=== PATIENT | male | born 1990 | race African-American/Black ===

== ENCOUNTER 2023-04-28 15:12 | Emergency (ER) | payer SELFPAY ==
[~2023-04-28] VITALS: Ht 157.5 cm; Wt 61.2 kg
--- NOTE | 2023-04-28 15:30 | NUR ---
BIBS FOR C/O RIGHT ANKLE PAIN 06/25 X FEW YEARS. DENIES TRAUMA. WILL CONTINUE TO MONITOR THE PATIENT.
[2023-04-28] MEDS ORDERED: NAPR-1164 PO (17:00)
[2023-04-28 17:08] VITALS: BP 112/68
--- NOTE | 2023-04-28 17:08 | NUR ---
Patient discharged to home in stable condition. Written and verbal after care instructions given. Patient verbalizes understanding of instruction.
== END 2023-04-28 17:08 | disposition home or self-care (01) ==
LOC: ER 15:16
DX: M25.571 Pain in right ankle and joints of right foot (principal); Z79.899 Other long term (current) drug therapy
CPT/HCPCS: 73610-TC